=== PATIENT | female | born 1975 | race Two or more races ===

== ENCOUNTER → 2024-04-11 | Outpatient (CLI) | payer MEDICAID, SELFPAY ==
--- NOTE | 2024-04-11 11:00 | XR_ITS ---
Examination: Screening digital mammography, bilateral Computer aided detection 3-D breast Tomosynthesis, bilateral Date and time of exam: April 11, 2024 1051 hours Compared to mammograms dating to March 31, 2016 Indication: Screening Technique: Nonmagnified MLO, CC views of the breasts to been obtained, reconstructed from 3-D Tomosynthesis images. R2 computer aided detection program utilized for evaluation of suspicious masses and/or abnormal calcifications. 3-D Tomosynthesis images obtained. Findings: Scattered areas of fibroglandular density Slightly more prominent 9 mm nodule nipple level right breast Benign calcifications Impression: BI-RADS Category 0: Incomplete: Need additional imaging evaluation More prominent 9 mm nodule nipple level right breast, recommend repeat spot tomographic views of this nodule as well as right breast sonography to complete the workup
== END | disposition home or self-care (01) ==
LOC: CDIM 10:45
PROVIDERS: Referring Provider Physician Assistant; Visit Provider Physician Assistant
DX: Z12.31 Encounter for screening mammogram for malignant neoplasm of breast (principal); R92.8 Other abnormal and inconclusive findings on diagnostic imaging of breast; N63.10 Unspecified lump in the right breast, unspecified quadrant
CPT/HCPCS: 77063; 77067

== ENCOUNTER → 2024-06-28 | Outpatient (CLI) | payer MEDICAID, SELFPAY ==
--- NOTE | 2024-06-28 08:30 | XR_ITS ---
Examination: Breast ultrasound, unilateral, right complete Date and time of exam: June 28, 2024 0906 hrs. Comparison October 06, 2018 Indications: Dizziness right breast one year, mammogram April 11, 2024 more prominent 9 mm nodule nipple level right breast Technique: Real-time wan scale ultrasonographic imaging performed right breast including all 4 quadrants as well as nipple retroareolar and axillary region. Findings: 4:00 cyst 5 x 6 mm No solid nodules Retroareolar dilated ducts Impression: BI-RADS Category 2: Benign finding
--- NOTE | 2024-06-28 09:00 | XR_ITS ---
Examination: Diagnostic digital mammography, unilateral, right Computer aided detection 3-D breast Tomosynthesis, unilateral Date and time of exam: 06/28/2024, 9:21 AM Comparisons: July 2018 through March 2024 Indications: Abnormal screening mammogram. Technique: Nonmagnified MLO, CC views of the right breast have been obtained, reconstructed from 3-D Tomosynthesis images. R2 computer aided detection program utilized for evaluation of suspicious masses and/or abnormal calcifications. 3-D Tomosynthesis images obtained. Technologist: Findings: The breasts are heterogeneously dense, which may obscure small masses. Multiple benign-appearing oval circumscribed masses. No evidence of suspicious masses or suspicious calcifications. Impression: BI-RADS category 2: Benign findings Recommend 1 year follow-up mammogram
== END | disposition home or self-care (01) ==
PROVIDERS: PCP Physician Assistant; Referring Provider Physician Assistant; Visit Provider Physician Assistant
DX: R92.321 Mammographic fibroglandular density, right breast (principal); N60.01 Solitary cyst of right breast
CPT/HCPCS: 76641; 77061; 77065; G0279

== ENCOUNTER 2024-10-08 16:57 | Emergency (ER) | payer MEDICAID, SELFPAY ==
[2024-10-08 16:58] VITALS: BMI 31.3
[2024-10-08 17:04] VITALS: BP 151/98; PULSE 88; RESP 20; TEMP 36.9; O2SAT 96
--- NOTE | 2024-10-08 17:24 | EDNOTE_ITS ---
ED Eye Problem RME/HPI General Chief complaint: Eye Problems Stated complaint: SOMETHING CAUGHT IN R) EYE Time Seen by Provider: 10/08/24 17:22 Source: patient Arrival date/time: 10/08/24 16:57 49-year-old female with no known medical history presents to the emergency room with a chief complaint of irritation to her right eye x 1 month. Mode of arrival: ambulatory Limitations: no limitations Related Data Previous Rx's ?Medication ?Instructions ?Recorded ibuprofen 600 mg tablet 600 mg PO Q6H #30 tabs 03/12 cyclobenzaprine 10 mg tablet 10 mg PO TID PRN muscle s pasm #30 06/06/20 tabs ibuprofen 800 mg tablet 800 mg PO TID PRN pain #30 t abs 06/06/20 naproxen 500 mg tablet (Naprosyn) 500 mg PO BID PRN pa in #30 tabs 03/19/21 diphenhydramine HCl 25 mg capsule 25 mg PO Q8H PRN all ergic symptoms 05/02/21 (Benadryl) #30 caps ketoconazole 2 % topical cream 1 applic topical BID #3 0 grams 05/10/21 tobramycin 0.3 % eye drops 2 drp ophthalmic (eye) Q2H #5 mL 10/08/24 Allergies Allergy/AdvReac Type Severity Reaction Status Date / Time No Known Allergies Allergy Verified 10/08/24 16:59 Review of Systems Review of Systems Systems Reviewed: All systems reviewed, normal except as documented Constitutional Constitutional: Reports system reviewed and no additional complaints, except as documented, Denies fatigue, Denies fever(s), Denies headache(s) and Denies weakness Eyes Eyes: Reports system reviewed and no additional complaints, except as documented, Denies blind spots, Reports blurry vision, Denies change in vision, Denies decreased night vision, Denies diplopia, Denies eye discharge, Denies dry eyes, Denies exophthalmos, Denies floaters, Reports irritation, Denies itchy eyes, Denies loss of peripheral vision, Denies loss of vision, Denies other visual disturbances, Denies eye pain, Denies photophobia, Denies requires corrective lenses, Denies seeing flashes, Denies spots in vision and Denies tunnel vision ENT Ears, Nose, Mouth, and Throat: Reports system reviewed and no additional complaints, except as documented, Denies otalgia, Denies headache(s), Denies nasal congestion, Denies throat swelling and Denies vertigo Cardiovascular Cardiovascular: Reports system reviewed and no additional complaints, except as documented, Denies chest pain, Denies dyspnea and Denies dyspnea on exertion Respiratory Respiratory: Reports system reviewed and no additional complaints, except as documented, Denies chest congestion, Denies cough, Denies dyspnea, Denies dyspnea on exertion and Denies wheezing Gastrointestinal Gastrointestinal: Reports system reviewed and no additional complaints, except as documented, Denies abdominal pain, Denies cramping, Denies nausea and Denies vomiting Genitourinary Genitourinary: Reports system reviewed and no additional complaints, except as documented Musculoskeletal Musculoskeletal: Reports system reviewed and no additional complaints, except as documented and Denies back pain Integumentary/Breasts Skin/Breast: Reports system reviewed and no additional complaints, except as documented and Denies wounds Neurologic Neurologic: Reports system reviewed and no additional complaints, except as documented, Denies confusion, Denies headache(s), Denies lack of coordination, Denies loss of vision, Denies vertigo and Denies weakness Psychiatric Psychiatric: Reports system reviewed and no additional complaints, except as documented, Denies anxiety, Denies confusion, Denies depression, Denies paranoia, Denies suicidal ideation and Denies tactile hallucinations Endocrine Endocrine: Reports system reviewed and no additional complaints, except as documented and Denies fatigue Hematologic/Lymphatic Hematologic/Lymphatic: Reports system reviewed and no additional complaints, except as documented and Denies lymphadenopathy Allergic/Immunologic Allergic/Immunologic: Reports system reviewed and no additional complaints, except as documented, Denies itchy eyes, Denies throat swelling, Denies urticaria and Denies wheezing Past Medical History Past Medical History CARDIAC: Negative Cardiac Disorders or Congestive Heart Failure RESPIRATORY: Negative Chronic Obstructive Pulmonary Disease (COPD) or Asthma GENITOURINARY: Positive Kidney Stones; Negative Renal Disease ENDOCRINE: Negative Diabetes Mellitus Type 1 or Diabetes Mellitus Type 2 HEMATOLOGIC: Positive Anemia; Negative Sickle Cell Disease Surgical History SURGICAL: Positive Tubal Ligation Social History SMOKING STATUS: Never smoker ED Exam General Limitations: Present no limitations General appearance: Present alert and in no apparent distress Head Head exam: Present atraumatic Eye Eye exam: Present normal appearance, PERRL and EOMI; Absent nystagmus, miosis, mydriasis, periorbital swelling or periorbital tenderness Expanded Eye Exam Pupils: Bilateral: regular, round and reactive Sclera/Conjunctival: right: tenderness ENT ENT exam: Present normal exam, normal oropharynx and mucous membranes moist Neck Neck exam: Present normal inspection, full ROM and trachea midline Chest Chest inspection: Present normal inspection and symmetric chest wall rise Respiratory Respiratory exam: Present normal lung sounds bilaterally Cardiovascular Cardiovascular exam: Present regular rate, normal rhythm and normal heart sounds Abdominal Exam Abdominal exam: Present soft and normal bowel sounds Extremities Exam Extremities exam: Present normal inspection and full ROM Back Exam Back exam: Present normal inspection and full ROM Neurological Exam Neurological exam: Present alert, oriented X3 and CN II-XII intact Psychiatric Psychiatric exam: Present normal affect and normal mood Skin Skin exam: Present warm, dry, intact and normal color Course Quality Measures none Vital Signs Vital signs: Vital Signs Temperature 98.5 F 10/08/24 17:04 Pulse Rate 88 10/08/24 17:04 Respiratory Rate 20 10/08/24 17:04 Blood Pressure 151/98 H 10/08/24 17:04 Pulse Oximetry (%) 96 10/08/24 17:04 Oxygen Delivery Method Room Air 10/08/24 17:04 Eye MDM Narrative MDM Narrative:: 49-year-old female with no known medical history presents to the emergency room with a chief complaint of irritation to her right eye x 1 month. Patient is hemodynamically stable and in no apparent distress Physical examination shows tenderness and irritation to the patient's right eye. There are no exudates but there is erythema to the conjunctiva. The patient states she feels irritation to the back of her eye patient states this has been going on for about a year but states in the last month it has been progressively getting worse. Patient denies any visual disturbances. Patient denies any loss of vision, spots in vision. Patient denies any trauma to her eye or any tingling inside her eye. Antibiotics are sent to the patient's pharmacy and patient was educated to follow-up with primary care provider for referral to an test engineer if her signs and symptoms continue Patient was discharged and educated to follow-up with primary care provider in the next 24 to 48 hours and return to the emergency room for any evidence of worsening signs or symptoms Patient data External records reviewed:: [facility] previous records Clinical information provided by:: patient Social determinants that could affect healthcare access:: none Patient has the following chronic illnesses:: No chronic illness How is presenting disease/condition affected by chronic disease/condition?: no chronic disease Evaluation data The following diagnostics were reviewed and interpreted by me:: lab results and radiology exam(s) Lab and/or radiology exams considered but not ordered:: Labs and radiology exams considered and ordered Interpretation Summary: N/A Medications / Prescriptions Medications or Prescriptions considered but not ordered:: Rx given Medication administrations:: Rx given Consultations Consultation(s) initiated? (list below): No Diagnosis Eye Problem Differential Diagnosis: corneal abrasion, conjunctivitis and corneal ulcer Most likely diagnosis given after review of the tests above:: Conjunctivitis Admission Indicated Admission indicated?: not indicated Admission Request Was there a request for admission?: No Disposition Plan Disposition Plan: Discharge Discharge Attestation Discharge Attestation: The patient and all family members were given an opportunity to ask questions and understood the discharge instructions. Discharge instructions specifically effects, indications for sooner follow up or return to the emergency department, and the expected course of current diagnosis. Patient condition: Stable Discharge Plan Plan Patient Disposition: HOME (Self Care) Discharge Disposition comment: Stable Prescriptions/Referrals Prescriptions/Med Rec: New tobramycin 0.3 % drops 2 drp ophthalmic (eye) Q2H Qty: 5 0RF No Action ibuprofen 600 mg tablet 600 mg PO Q6H Qty: 30 0RF diphenhydramine HCl [Benadryl] 25 mg capsule 25 mg PO Q8H PRN (Reason: allergic symptoms) Qty: 30 0RF ketoconazole 2 % cream 1 applic topical BID Qty: 30 0RF cyclobenzaprine 10 mg tablet 10 mg PO TID PRN (Reason: muscle spasm) Qty: 30 0RF ibuprofen 800 mg tablet 800 mg PO TID PRN (Reason: pain) Qty: 30 0RF naproxen [Naprosyn] 500 mg tablet 500 mg PO BID PRN (Reason: pain) Qty: 30 0RF Problem List Clinical Impression: Conjunctivitis Patient/Caregiver Discharge Instructions Education Materials: What Is Conjunctivitis?, ED Conjunctivitis, Bacterial Additional Instructions: Please follow-up with your primary care provider in the next 24 to 48 hours Antibiotics are sent to your pharmacy please pick them up and take them as indicated For any evidence of worsening signs or symptoms return to the emergency room immediately Print Language: [place] Stand Alone Forms: [employer] Award Info., Patient Portal Info Letter PA/CLOCKMAKER APPRENTICE Supervising Physician PA/CLOCKMAKER APPRENTICE Supervising Physician: Dr. Heredia
== END 2024-10-08 17:29 | disposition home or self-care (01) ==
LOC: SERX 17:25
PROVIDERS: Emergency Provider Emergency Medicine
DX: H10.89 Other conjunctivitis (principal)
CPT/HCPCS: 99282